=== PATIENT | male | born 1955 | race Caucasian/White ===

== ENCOUNTER → 2016-05-14 | Outpatient (REF) | payer OTHER ==
[~2016-05-14] MED LIST: ACET650T12 PO; AMLO10TA2 PO; COLA100C PO; LEVA500T PO; LISI10TA4 PO; PERC10TA17 PO; PERC5TAB6 PO
== END ==
LOC: M LAB REF 16:20
PROVIDERS: ATTEND Internal Medicine Medical Oncology
DX: C34.90 Malignant neoplasm of unspecified part of unspecified bronchus or lung (principal)

== ENCOUNTER → 2016-05-27 | Outpatient (CLI) | payer OTHER ==
--- NOTE | 2016-05-27 20:12 | REP ---
PET/CT: History: Restaging non-small cell lung carcinoma. History of metastatic disease to bone. Status post palliative radiation therapy right humerus. Comparisons: Comparison PET-CT study August 01, 2015. TECHNIQUE: 72 minutes following the intravenous injection of a 7.8 mCi dose of F-18 FDG, three-dimensional PET scintigraphy is acquired from the skull base to the proximal thighs. Triplanar noncontrast CT scanning is acquired through the same anatomic range for attenuation correction, and image registration with scan parameters optimized to minimize radiation exposure to the patient. PET scintigraphy and CT datasets were fused and displayed on a workstation with multiplanar and projection display capability. PET/CT Findings: There is mildly increased uptake in and about the known metastatic lesion in the right proximal humerus. Maximum standard uptake value in the range of 3.55. There is unfortunately evidence of progression in multiple haris groups with hypermetabolic lymphadenopathy. These include left internal jugular neck nodes with maximum standard uptake value 5.8 and 7.8, and bilateral axillary adenopathy with enlarged hypermetabolic nodes ranging in uptake to 4.8 on the left and 10.9 on the right. There is a small 1 cm but hypermetabolic right supraclavicular node with maximum standard uptake value 4.6. There is an anterior mediastinal 1 cm lymph node with very slightly increased uptake, 2.2. There is an enlarged left paratracheal node with standard uptake value 6.7. A left hilar node is normal in size, but standard uptake value 6.3. There is an upper abdominal focus of hypermetabolic uptake in the epigastric region just deep to the inferior edge of the left lobe of the liver, maximum standard uptake value is 3.0. There is a new musculoskeletal mass principally centered in the right piriformis muscle in the deep right pelvis with maximum standard uptake value 16.6. This mass is eroding the lateral margin of the sacrum just below the SI joint on the right. This mass lesion measures 4.8 cm in greatest diameter. There is right pelvic lymphadenopathy posterior to the external iliac artery with maximum standard uptake value 6.5. There is left inguinal hypermetabolic haris uptake with a small lymph node ranging up to 13.5 standard uptake value. No other new skeletal hypermetabolic foci are seen. The previously noted metastatic focus in the right pubic bone is again seen with areas of bone destruction and mildly hypermetabolic uptake, SUV value 2.8. IMPRESSION: There is evidence of principally haris progression, but also musculoskeletal progression. Multiple sites as above. Signed by Berry Rajan MD 05/28/2016 09:39 A
== END ==
LOC: M RAD 10:55
PROVIDERS: ATTEND Internal Medicine Medical Oncology
DX: C34.90 Malignant neoplasm of unspecified part of unspecified bronchus or lung (principal)

== ENCOUNTER → 2016-05-29 | Outpatient (REF) | payer OTHER ==
[2016-05-29 12:45] LABS: INR 0.92
== END ==
LOC: M LAB REF 12:07
PROVIDERS: ATTEND Internal Medicine Medical Oncology
DX: C34.90 Malignant neoplasm of unspecified part of unspecified bronchus or lung (principal)

== ENCOUNTER → 2016-06-04 | Outpatient (CLI) | payer OTHER | LOC: M ONCR 09:45 | PROVIDERS: ATTEND Radiology Radiation Oncology | DX: C34.32 Malignant neoplasm of lower lobe, left bronchus or lung (principal); C79.51 Secondary malignant neoplasm of bone ==

== ENCOUNTER → 2016-06-12 | Outpatient (CLI) | payer OTHER ==
[~2016-06-12] MED LIST changes: -COLA100C PO; +COLA100C3 PO
== END ==
LOC: M RAD 13:25
PROVIDERS: ATTEND Radiology Radiation Oncology
DX: C34.90 Malignant neoplasm of unspecified part of unspecified bronchus or lung (principal); C79.51 Secondary malignant neoplasm of bone

== ENCOUNTER 2016-06-29 15:24 | Outpatient (RCR) | payer OTHER ==
--- NOTE | 2016-06-30 07:14 | RADONC ---
RADIATION ONCOLOGY SIMULATION NOTE DATE: 06/29/2016 CHART NUMBER: [id number] Mr. Orlando was taken to the CT scan for CT simulation of his left axillary field. CT was accomplished without difficulty or discomfort. Radiation treatment planning is underway and radiation treatments will begin subsequently. An immobilization device was created and will be used throughout the course of treatment. I was physically present throughout the course of CT simulation.
--- NOTE | 2016-06-30 07:18 | RADONC ---
RADIATION ONCOLOGY DATE: 06/29/2016 PROGRESS NOTE CHART NUMBER: [id number] Mr. Orlando is presently at a dose of 1800 cGy to his right parasacral mass and is tolerating treatments quite well at this point with no significant difficulties related to his radiation therapy. REVIEW OF SYSTEMS: The patient's review of systems continues to be positive for some pain in that area as well as in the left axillary region. PHYSICAL EXAMINATION: The patient's skin is in good condition with no evidence of radiation change present. The remainder of his physical exam remains unchanged as well. ASSESSMENT: The patient is completing radiation to his parasacral mass. Since this was treated in the past, this is the maximum safe levels we can give. Hopefully, we will have been of some palliative benefit. Following this, he is being taken to the CT scan for CT simulation of his axillary area. This area will also be treated during a short course in hope to give him some palliation. Meanwhile, he is being managed by his medical oncologist and systemic treatments are being coordinated.
== END 2016-07-05 ==
LOC: M ONCR 15:24
PROVIDERS: ATTEND Radiology Radiation Oncology
DX: C79.51 Secondary malignant neoplasm of bone (principal); C34.32 Malignant neoplasm of lower lobe, left bronchus or lung

== ENCOUNTER → 2016-06-29 | Outpatient (CLI) | payer OTHER | LOC: M RAD 14:17 | PROVIDERS: ATTEND Radiology Radiation Oncology | DX: C34.90 Malignant neoplasm of unspecified part of unspecified bronchus or lung (principal) ==

== ENCOUNTER 2016-07-06 09:13 | Outpatient (RCR) | payer OTHER ==
--- NOTE | 2016-06-13 07:24 | RADONC ---
RADIATION ONCOLOGY SIMULATION NOTE DATE: 06/12/2016 CHART NUMBER: [id number]. RADIATION ONCOLOGY SIMULATION NOTE: Mr. Orlando was taken to the CT scan for CT simulation of his sacral field. CT was accomplished without difficulty or discomfort. Radiation treatment planning is underway and radiation treatments will begin subsequently. An immobilization device was created without difficulty or discomfort. It will be used throughout the course of treatment. I was physically present throughout the course of CT simulation.
--- NOTE | 2016-06-23 08:04 | RADONC ---
RADIATION ONCOLOGY PROGRESS NOTE DATE: 06/22/2016 CHART NUMBER: [id number] Mr. Orlando underwent his first fraction of radiation today to his right parasacral mass. It was tolerated without difficulty or discomfort. The patient continues to complain of pain in that area as well as several other areas. His review of systems is otherwise noncontributory. He denies nausea, vomiting, fevers, chills, night sweats, diplopia, headaches, anxiety or depression, anorexia, weight loss, visual disturbances, chest pain, urinary or bowel difficulties, bone pain, or neurological problems. PHYSICAL EXAMINATION: The patient's skin clearly showed no evidence of radiation change present. The remainder of his physical exam remains unchanged as well. Radiation will continue to his right parasacral mass. We are planning radiation to the left axilla as well.
--- NOTE | 2016-07-13 11:23 | RADONC ---
RADIATION ONCOLOGY PROGRESS NOTE DATE: 07/13/2016 CHART NUMBER: [id number] Mr. Orlando is presently a dose of 1200 cGy to his left axilla and is tolerating treatments quite well at this point with no complaints related to his radiation therapy. He is having no increased pain or discomfort. He does report an improvement in his axillary discomfort. He also reports an improvement in his hip discomfort. REVIEW OF SYSTEMS: The patient's review of systems is positive for continued hip and axillary discomfort, but is otherwise generally noncontributory. He denies nausea, vomiting, fevers, chills, night sweats, diplopia, headaches, anxiety or depression, anorexia, weight loss, visual disturbances, chest pain, urinary or bowel difficulties, bone pain or neurological problems. PHYSICAL EXAMINATION: The patient's skin in the treated area showed no evidence of moist or dry desquamation. The remainder of his physical exam remains unchanged. Mr. Orlando is tolerating his treatments quite well and radiation will continue as scheduled.
--- NOTE | 2016-07-20 10:21 | RADONC ---
RADIATION ONCOLOGY PROGRESS NOTE DATE: 07/20/2016 CHART NUMBER: [id number] Mr. Orlando is presently at a dose of 2700 cGy to his left axillary region is tolerating treatments quite well at this point with no complaints related to his radiation therapy. He is having no skin discomfort or other problems. He reports a marked improvement in his axillary pain. The patient's review of systems is noncontributory other than some hip pain. He denies nausea, vomiting, fevers, chills, night sweats, diplopia, headaches, anxiety or depression, anorexia, weight loss, visual disturbances, chest pain, urinary or bowel difficulties, bone pain, or neurological problems. PHYSICAL EXAMINATION: The patient's skin is in good condition with no evidence of moist or dry desquamation. The remainder of the physical exam remains unchanged. Mr. Orlando is tolerating treatments quite well. Radiation is scheduled for completion tomorrow. He is also scheduled for chemotherapy tomorrow.
--- NOTE | 2016-07-21 10:25 | RADONC ---
RADIATION ONCOLOGY TREATMENT SUMMARY DATE: 07/21/2016 CHART NUMBER: [id number] DIAGNOSIS: Lung cancer. STAGE: IV, metastatic. ECOG PERFORMANCE STATUS: 1. Mr. Orlando is a 60-year-old white male with the diagnosis of widely metastatic non-small cell lung carcinoma who presented to us for consideration of palliative radiation therapy to his right parasacral mass as well as is left axilla. We treated the patient to his right parasacral mass for a total dose of 1800 cGy delivered in six fractions of 300 cGy each over seven elapsed days from 06/22/2016 through 06/29/2016. The patient's mass was treated on the linear accelerator utilizing a 3-D conformal technique with a combination 18X and 6X photon beams. Following completion of the patient's right sacral treatment we treated the patient to his left axillary region for a dose of 3000 cGy delivered in 10 fractions of 300 cGy each over 13 elapsed days from 07/08/2016 through 07/21/2016. The patient's left axillary region was treated on the linear accelerator utilizing a 6X and 18X combinated photon beam via 3-D conformal therapy with AP and PA alatorre. Mr. Orlando tolerated his treatments quite well and was able to complete therapy as prescribed without interruption. I have scheduled the patient to see me again in 1 month for further followup. He will also continue to be followed by his other physicians as well. cc: MD Jimi Nguyen MD Rory Sears, [facility] *CANDACE Rosenberg
== END 2016-08-05 ==
LOC: M ONCR 09:13
PROVIDERS: ATTEND Radiology Radiation Oncology
DX: C79.51 Secondary malignant neoplasm of bone (principal); C34.32 Malignant neoplasm of lower lobe, left bronchus or lung

== ENCOUNTER → 2016-07-07 | Outpatient (REF) | payer OTHER ==
[2016-07-07 19:46] LABS: FREE T4 1.21 NG/DL (0.76-1.46)
== END ==
LOC: M LAB REF 17:02
PROVIDERS: ATTEND Internal Medicine Medical Oncology
DX: C34.90 Malignant neoplasm of unspecified part of unspecified bronchus or lung (principal)

== ENCOUNTER 2016-08-26 08:00 | Outpatient (RCR) | payer OTHER ==
[~2016-08-26 08:00] MED LIST changes: -COLA100C3 PO; +COLA100C5 PO; +LEVA1TAB2 PO; -LEVA500T PO; -PERC10TA17 PO; +PERC10TA26 PO; +PERC5TAB12 PO; -PERC5TAB6 PO
== END 2016-09-04 ==
LOC: M ONCR 08:00
PROVIDERS: ATTEND Radiology Radiation Oncology
DX: C79.51 Secondary malignant neoplasm of bone (principal); C34.32 Malignant neoplasm of lower lobe, left bronchus or lung

== ENCOUNTER → 2016-08-26 | Outpatient (CLI) | payer OTHER ==
--- NOTE | 2016-08-27 13:34 | RADONC ---
RADIATION ONCOLOGY FOLLOWUP CONSULTATION NOTE: DATE: 08/26/2016 CHART NUMBER: [id number] DIAGNOSIS: Lung cancer. STAGE: IV, metastatic. ECOG PERFORMANCE STATUS: 1 Mr. Orlando is a 60-year-old white male with the diagnosis of widely metastatic non-small cell lung carcinoma who is well known to our department and has been treated to multiple areas of the past. The patient came in today complaining of new left hip pain, which he said has been rapidly progressive over the past month or so. He says he is having difficulty walking. I reviewed the patient's PET/CT done 05/27/2016 personally and cannot see any significant disease in the region he says is causing him problems. I am ,therefore, ordering a new bone scan to be undertaken and the patient will return to me for further discussion pending the results of that bone scan. The patient's review of systems is positive for the hip pain but is otherwise noncontributory. He denies nausea, vomiting, fevers, chills, night sweats, diplopia, headaches, anxiety or depression, anorexia, weight loss, visual disturbances, chest pain, urinary or bowel difficulties, bone pain, or neurological problems. PHYSICAL EXAMINATION: The patient is a well-developed, well-nourished male in no acute distress. HEENT exam is normocephalic, atraumatic. Extraocular movements are intact. There is no palpable cervical, supraclavicular, infraclavicular, axillary, or inguinal lymphadenopathy present. Lungs are clear to auscultation and percussion. Heart has a regular rate and rhythm. Abdomen is benign with no hepatosplenomegaly, masses, or tenderness. Skeletal examination reveals no tenderness to pressure or percussion of the bony skeleton. Extremities reveal no clubbing, cyanosis, or edema. Neurologic exam is grossly intact, as is the remainder of the physical examination. ASSESSMENT: Once again, I am ordering a new bone scan and further recommendations will be made pending the results of that study. cc: MD Sisi Nguyen, MD Emile Head, DO [facility]
== END ==
LOC: M ONCR 15:14
PROVIDERS: ATTEND Radiology Radiation Oncology
DX: C34.32 Malignant neoplasm of lower lobe, left bronchus or lung (principal); C79.51 Secondary malignant neoplasm of bone

== ENCOUNTER → 2016-08-31 | Outpatient (CLI) | payer OTHER ==
[~2016-08-31] MED LIST changes: +COLA100C3 PO; -COLA100C5 PO; -LEVA1TAB2 PO; +LEVA500T PO; +PERC10TA17 PO; -PERC10TA26 PO; -PERC5TAB12 PO; +PERC5TAB6 PO
--- NOTE | 2016-08-31 13:37 | REP ---
Whole body radionuclide bone scan: Comparison studies are the whole-body bone scan 11/26/2015 and whole body PET scan of 05/27/2016. There is focal increased uptake in the proximal right humerus, similar to the prior bone scan and similar to the uptake in the comparison PET scan. There is a tiny focus of increased uptake at the inferior margin of the right sacroiliac articulation, not significantly changed from the prior bone scan and in the location where there is uptake on the PET scan. There is new focal uptake in the left iliac wing inferoanteriorly. There is increased uptake in the symphysis pubis on the right. This corresponds to uptake in the right pubic bone on the previous bone scan and on the comparison PET scan. Subtle uptake is again noted posteriorly in the right eighth through tenth ribs, similar to the prior bone scan. Impression: Multiple skeletal foci. There is at least one new focus anteriorly inferiorly in the left iliac wing. The study is performed with 21.4 mCi of technetium 99m labeled MDP. Signed by Aakash Diane MD 08/31/2016 01:27 P
== END ==
LOC: M RAD 09:27
PROVIDERS: ATTEND Radiology Radiation Oncology
DX: C34.90 Malignant neoplasm of unspecified part of unspecified bronchus or lung (principal)

== ENCOUNTER → 2016-09-17 | Outpatient (CLI) | payer OTHER ==
[~2016-09-17] MED LIST changes: -COLA100C3 PO; +COLA100C5 PO; +LEVA1TAB2 PO; -LEVA500T PO; -PERC10TA17 PO; +PERC10TA26 PO; +PERC5TAB12 PO; -PERC5TAB6 PO
--- NOTE | 2016-09-17 11:57 | RADONC ---
RADIATION ONCOLOGY CONSULTATION NOTE: DATE: 09/17/2016 CHART NUMBER: [id number] DIAGNOSIS: Lung cancer. STAGE: IV. ECOG PERFORMANCE STATUS: 1 Mr. Orlando is a very pleasant 60-year-old white male with the diagnosis of widely metastatic non-small cell lung carcinoma who is well-known to our department and has been treated to multiple bony sites in the past. The patient presents today once again reporting that he has left-sided hip pain. A bone scan was done on 08/31/2016, which shows increased uptake in the left pelvis. REVIEW OF SYSTEMS: The patient's review of systems is positive for a significant left-sided hip pain but is otherwise largely noncontributory. He denies nausea, vomiting, fevers, chills, night sweats, diplopia, headaches, anxiety or depression, anorexia, weight loss, visual disturbances, chest pain, urinary or bowel difficulties, bone pain, or neurological problems. PHYSICAL EXAMINATION: The patient is a well-developed, well-nourished male in no acute distress. HEENT exam is normocephalic, atraumatic. Extraocular movements are intact. There is no palpable cervical, supraclavicular, infraclavicular, axillary, or inguinal lymphadenopathy present. Lungs are clear to auscultation and percussion. Heart has a regular rate and rhythm. Abdomen is benign with no hepatosplenomegaly, masses, or tenderness. Skeletal examination reveals no tenderness to pressure or percussion of the bony skeleton. Extremities reveal no clubbing, cyanosis, or edema. Neurologic exam is grossly intact, as is the remainder of the physical examination. ASSESSMENT: Mr. Orlando is presenting with new left-sided hip pain. The previous sites of treatment showed a good result with almost full resolution of his discomfort. I do believe the patient would be a candidate for palliative radiation therapy and I have so informed him. I have discussed with the patient in detail the potential benefits as well as possible acute and chronic sequelae of external beam radiation therapy. We discussed logistics of treatment planning, simulation and subsequent fractionated daily radiation treatments. I have scheduled the patient for the next available simulation slot and radiation treatments will begin subsequently. Thank you for allowing us to participate in the care of this very pleasant gentleman. If I could be of any further assistance or provide you any information, please free to contact me anytime. As always warm regards, nausea. cc: Osagie Kaur, MD Sisi Creedon, MD Emile Head, DO [facility]
--- NOTE | 2016-09-22 10:43 | RADONC ---
RADIATION ONCOLOGY SIMULATION NOTE DATE: 09/22/2016 CHART NUMBER: [id number] Mr. Orlando was taken to the CT scan for CT simulation of his left pelvic and hip field. CT was accomplished without difficulty or discomfort. Radiation treatment planning is underway and radiation treatments will begin subsequently. An immobilization device was created and will be used throughout the course of treatment. It was created without difficulty or discomfort. I was physically present throughout the course of CT simulation.
--- NOTE | 2016-10-06 06:53 | RADONC ---
RADIATION ONCOLOGY PROGRESS NOTE DATE: 10/05/2016 CHART NUMBER: [id number] Mr. Orlando is presently at a dose of 1200 centigrade to his left hip and is tolerating treatments quite well at this point with no complaints related to his radiation therapy. He is having no nausea or vomiting. The patient does have increased hip pain as he has used up his pain medication and is unable to fill this prescription until October 10. REVIEW OF SYSTEMS: The patient's review of systems is positive for increased hip pain, but is otherwise noncontributory. Denies nausea, vomiting, fevers, chills, night sweats, diplopia, headaches, anxiety or depression, anorexia, weight loss, visual disturbances, chest pain, urinary or bowel difficulties, bone pain, or neurological problems. PHYSICAL EXAMINATION: The patient's skin is in good condition with no evidence of radiation change present. There is no moist or dry desquamation. The remainder of his physical exam remains unchanged. Mr. Orlando is tolerating treatments quite well and radiation will continue as scheduled.
== END ==
LOC: M ONCR 09:51
PROVIDERS: ATTEND Radiology Radiation Oncology
DX: C34.90 Malignant neoplasm of unspecified part of unspecified bronchus or lung (principal); C79.51 Secondary malignant neoplasm of bone

== ENCOUNTER 2016-09-22 11:55 | Outpatient (RCR) | payer OTHER | END 2016-10-05 | LOC: M ONCR 11:55 | PROVIDERS: ATTEND Radiology Radiation Oncology | DX: C79.51 Secondary malignant neoplasm of bone (principal); C34.32 Malignant neoplasm of lower lobe, left bronchus or lung ==

== ENCOUNTER → 2016-09-22 | Outpatient (CLI) | payer OTHER | LOC: M RAD 10:01 → M ONCR 10:01 | PROVIDERS: ATTEND Radiology Radiation Oncology | DX: C34.32 Malignant neoplasm of lower lobe, left bronchus or lung (principal); C79.51 Secondary malignant neoplasm of bone ==

== ENCOUNTER 2016-10-06 09:00 | Outpatient (RCR) | payer OTHER ==
--- NOTE | 2016-10-12 13:30 | RADONC ---
RADIATION ONCOLOGY PROGRESS NOTE DATE: 10/12/2016 CHART NUMBER: [id number] Mr. Orlando is presently at a dose of 2700 cGy to his left hip and is tolerating treatments quite well at this point with no complaints related to his radiation therapy. He is having no increased hip pain or other problems. REVIEW OF SYSTEMS: The patient's review of systems is noncontributory. He denies nausea, vomiting, fevers, chills, night sweats, diplopia, headaches, anxiety or depression, anorexia, weight loss, visual disturbances, chest pain, urinary or bowel difficulties, bone pain or neurological problems. PHYSICAL EXAMINATION: The patient's skin is in good condition with no evidence of moist or dry desquamation. The remainder of his physical exam remains unchanged. Mr. Orlando is tolerating treatments quite well and radiation will continue as scheduled.
--- NOTE | 2016-10-13 15:16 | RADONC ---
RADIATION ONCOLOGY TREATMENT SUMMARY DATE: 10/13/2016 CHART NUMBER: [id number] DIAGNOSIS: Lung cancer. STAGE: IV ECOG PERFORMANCE STATUS: 1 Mr. Orlando is a 61-year-old white male with the diagnosis of widely metastatic non-small cell lung carcinoma, who presents to us for consideration of palliative radiation therapy to his left hip. We treated the patient to the left hip for a total dose of 3000 cGy delivered in 10 fractions of 300 cGy each over 13 elapsed days from 09/30/2016 through 10/13/2016. The patient's left hip was treated on a linear accelerator utilizing an 18 MV photon beam via anterior and posterior parallel-opposed alatorre. Mr. Orlando tolerated his treatments quite well, was able to complete therapy as prescribed without interruption. The patient is scheduled see me again in 1 month for further followup. He will also continue to be followed by his other physicians as well. Thank you for allowing us to participate in the care of this very pleasant gentleman. If I could be of any further assistance or provide you with any information, please feel free to contact me at anytime. cc: MD Sisi Nguyen, MD Emile Head, DO [facility]
== END 2016-11-05 ==
LOC: M ONCR 09:00
PROVIDERS: ATTEND Radiology Radiation Oncology
DX: C79.51 Secondary malignant neoplasm of bone (principal); C34.32 Malignant neoplasm of lower lobe, left bronchus or lung

== ENCOUNTER → 2016-10-28 | Outpatient (REF) | payer OTHER ==
[2016-10-28 19:10] LABS: FREE T4 1.35 NG/DL (0.76-1.46)
== END ==
LOC: M LAB REF 12:56
PROVIDERS: ATTEND Internal Medicine Medical Oncology
DX: C34.90 Malignant neoplasm of unspecified part of unspecified bronchus or lung (principal)

== ENCOUNTER → 2016-11-11 | Outpatient (CLI) | payer OTHER ==
--- NOTE | 2016-11-12 10:37 | RADONC ---
RADIATION ONCOLOGY PROGRESS NOTE: DATE: 11/11/2016 CHART NUMBER: [id number]. DIAGNOSIS: Lung cancer. STAGE: IV. ECOG PERFORMANCE STATUS: 1. FOLLOWUP NOTE: Mr. Orlando is a 61year-old gentleman with the diagnosis of metastatic nonsmall lung carcinoma who is presenting to us to day for followup visit 1 month post completion of palliative radiation to his left hip. The patient presents today reporting that he is feeling better and has less pain in his left hip. He also reports that he is being followed and managed closely by his medical oncologist, Dr. Kaur. He has no new complaints related to his radiation therapy or disease. REVIEW OF SYSTEMS: The patient's review of systems is positive for continued discomfort in his left hip, which is improving. It is otherwise noncontributory. The patient's review of systems is negative for nausea, vomiting, fevers, chills, night sweats, diplopia, headaches, anxiety or depression, anorexia, weight loss, visual disturbances, chest pain, urinary or bowel difficulties, or neurological problems. PHYSICAL EXAMINATION: The patient is an ill kempt, white male in no acute distress. HEENT exam is normocephalic, atraumatic. Extraocular movements are intact. There is no palpable cervical, supraclavicular, infraclavicular, axillary or inguinal lymphadenopathy present. His lungs are clear to auscultation and percussion. His heart has a regular rate and rhythm. His abdomen is benign with no hepatosplenomegaly, masses or tenderness. Skeletal examination reveals no tenderness to pressure or percussion of the bony skeleton. Extremities reveal no clubbing, cyanosis or edema. Neurological exam is intact, as is the remainder of physical examination. ASSESSMENT: The patient is clinically doing better status post palliative radiation therapy to his left hip. He continues to have some discomfort in that area. He is presently being managed and followed closely medical oncology and is therefore being discharged from our followup except on an as needed basis. cc: MD Sisi Nguyen NP Robert Johnson, MD Rory Sears, DO [facility]
== END ==
LOC: M ONCR 14:14
PROVIDERS: ATTEND Radiology Radiation Oncology
DX: C34.32 Malignant neoplasm of lower lobe, left bronchus or lung (principal); C79.51 Secondary malignant neoplasm of bone

== ENCOUNTER → 2016-12-22 | Outpatient (CLI) | payer OTHER ==
--- NOTE | 2016-12-23 08:15 | RADONC ---
RADIATION ONCOLOGY FOLLOWUP CONSULTATION NOTE DATE: 12/22/2016 CHART NUMBER: [id number]. DIAGNOSIS: Lung cancer. STAGE: IV. ECOG PERFORMANCE STATUS: 1. FOLLOWUP CONSULTATION NOTE: Mr. Orlando is a 61-year-old white male with the diagnosis of widely metastatic known non-small cell lung carcinoma who presents to us today complaining once again of right-sided hip pain. He reports the pain is located over his buttocks on the right, basically in the same area he has had it before. He has no other complaints at this time. REVIEW OF SYSTEMS: The patient's review of systems is positive for his hip pain but is otherwise, generally noncontributory. Denies nausea, vomiting, fevers, chills, night sweats, diplopia, headaches, anxiety or depression, anorexia, weight loss, visual disturbances, chest pain, urinary or bowel difficulties, bone pain, or neurological problems. PHYSICAL EXAMINATION: The patient is a white male in no acute distress with very poor hygiene. His lungs are clear to auscultation and percussion. His heart has a regular rate and rhythm. Skeletal examination does not reveal any tenderness to pressure percussion of the bony skeleton. ASSESSMENT: I had a very lengthy discussion with this patient. Unfortunately, this area has been treated twice in the past. No further radiation can be safely delivered. I made clear to the patient that we would be more than happy to treat any other area that has not been already treated, but not only would treatment not be a benefit to him to this area, but it would most likely cause him significant harm. I wish we could have been of more benefit to this unfortunate gentleman. I have discussed with him the possibility of hospice at this point. We would be more than willing to set him up with a hospice referral if he should so desire. At the present time, however the patient does not wish to consider hospice. He will continue to be followed and managed by his medical oncologist, Dr. Kaur. cc: MD Sisi Nguyen NP Robert Johnson, MD Rory Sears, DO [facility]
== END ==
LOC: M ONCR 15:02
PROVIDERS: ATTEND Radiology Radiation Oncology
DX: C34.32 Malignant neoplasm of lower lobe, left bronchus or lung (principal); C79.51 Secondary malignant neoplasm of bone

== ENCOUNTER → 2016-12-23 | Outpatient (REF) | payer OTHER ==
[2016-12-23 19:19] LABS: FREE T4 1.32 NG/DL (0.76-1.46)
== END ==
LOC: M LAB REF 17:21
PROVIDERS: ATTEND Internal Medicine Medical Oncology
DX: C34.90 Malignant neoplasm of unspecified part of unspecified bronchus or lung (principal)

== ENCOUNTER → 2017-01-19 | Outpatient (CLI) | payer OTHER ==
--- NOTE | 2017-02-02 01:32 | ECWPNPC ---
PATIENT NAME: TREVOR GUAN : 1955 GENDER: MALE VISIT DATE: 01/19/2017 DISCHARGE DATE: 01/19/17 1104 VISIT LOCKED DATE TIME: PHYSICIAN: YESY HERRERA RESOURCE: YESY HERRERA REASON FOR APPOINTMENT 1. 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 PATIENT DESCRIBES THE PAIN ACHING WITH A PAIN SCORE OF 7/10. PATIENT STATES THAT PAIN STARTED A FEW MONTHS AGO FROM THE MULTIPLE TUMORS IN HIS BODY. CURRENTLY THE PATIENT IS USING OXYCODONE AND IBUPROFEN FOR THIS PAIN BUT THE PAIN IS PERSISTENT. 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 PATIENT IS FOLLOWING DR. ALLISON FOR A CHEMOTHERAPIST AND DR. BERNABE FOR RADIATION THERAPY. PATIENT HAS NOT TRIED PHYSICAL THERAPY FOR THIS PAIN AT THIS TIME. PATIENT DENIES UNEXPLAINABLE WEIGHT LOSS, FEVER, CHILLS, NEW CHANGES ON HIS URINARY OR BOWEL CONTROL. PAIN SCREENING: PATIENT HAS A COMPLAINT OF ACUTE OR CHRONIC PAIN :YES CURRENT MEDICATIONS TAKING OXYCODONE-ACETAMINOPHEN 5-325 MG TABLET 1 TABLET NEEDED ORALLY EVERY 6 HRS TAKING AMLODIPINE BESYLATE 10 MG TABLET 1 TABLET ORALLY ONCE A DAY TAKING LISINOPRIL 10 10 MG TABLET ORAL TAKING IBUPROFEN 800 MG TABLET 1 TABLET ORALLY 2 TIMES A DAY NOT-TAKING OXYCODONE HCL 5 MG/5ML SOLUTION 5 ML NEEDED ORALLY EVERY 6 HRS UNKNOWN PERCOCET 5-325 MG TABLET 1-2 TABLET(S) ORALLY EVERY 4 HRS NEEDED FOR PAIN (MAX DAILY DOSE 12 TABS) UNKNOWN COLACE 100 MG CAPSULE 1 CAPSULE ORALLY BID MEDICATION LIST REVIEWED AND RECONCILED WITH THE PATIENT PAST MEDICAL HISTORY HYPERTENSION KIDNEY CANCER ALLERGIES PENICILLIN (FOR ALLERGIES USE ONLY): HIVES SURGICAL HISTORY RIGHT KNEE 1980 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 CAFFEINE 1-2/DAY. SEXUAL HX HAD SEX IN THE LAST 12 MONTHS (VAGINAL, ORAL, OR ANAL)?: NO, HAVE YOU EVER HAD AN STD?: NO. DIET: REGULAR. EXERCISE: DAILY. MARITAL STATUS: .. PETS: 2 CATS. TAOISM NO EPISCOPALIAN BELIEFS THAT WOULD IMPACT HEALTH CARE. LANGUAGE MOZAMBICAN. EDUCATION LEVEL OF EDUCATION:FINISHED HIGH SCHOOL LEARNING BARRIERS / SPECIAL NEEDS HEARING IMPAIRED?NO VISION IMPAIRED?YES :CORRECTIVE LENSES COGNITIVELY IMPAIRED?NO READINESS TO LEARN?YES LEARNING PREFERENCES?YES :BOOKLETS, HANDOUTS PAIN CLINIC PFS, CLERGY, PUBLIC HEALTH REFERRALS HAS THE PATIENT BEEN EDUCATED REGARDING HIS/HER PLAN OF CARE?YES HAS THE PATIENT BEEN EDUCATED REGARDING PAIN, THE RISK FOR PAIN, THE IMPORTANCE OF EFFECTIVE PAIN MANAGEMENT, AND THE PAIN ASSESSMENT PROCESS?YES ADVANCE DIRECTIVES HEALTH CARE PROXY?NO DO YOU HAVE A DNR?NO POWER OF INDEPENDENT LIVING ADVISOR?YES NAME OF POA? MARIA M GUAN, SON PHONE # OF POA? [phone] TRAVEL OUTSIDE US: DENIES. DOMESTIC VIOLENCE NONE. HOSPITALIZATION/MAJOR DIAGNOSTIC PROCEDURE SPIDER BIT REVIEW OF SYSTEMS REVIEWED BY: PROVIDER: YESY HERRERA MD . CONSTITUTIONAL: ANY CHANGE IN YOUR MEDICAL CONDITION? NO . CHILLS NO . FEVER NO . INFECTION: DO YOU HAVE NEW INFECTIONS? NO . DO YOU HAVE HISTORY OF MRSA? NO . MUSCULOSKELETAL: ANY NEW PATTERNS OF PAIN OR NUMBNESS? NO . SYTEMIC LUPUS NO . GASTROENTEROLOGY: ANY NEW CHANGE IN BOWEL CONTROL? NO . BARRETTS ESOPHAGUS NO . CIRRHOSIS NO . HEPATITIS NO . LIVER FAILURE NO . ACID REFLUX NO . UNEXPLAINED WEIGHT LOSS NO . GENITOURINARY: ANY NEW CHANGE IN BLADDER CONTROL? NO . IS THERE A CHANCE YOU COULD BE ? NO . HEMATOLOGY/LYMPH: DO YOU TAKE ANY BLOOD THINNERS? (FOR EXAMPLE- COUMADIN, PLAVIX, AGGRENOX, PLATEL, PRADAXA, OR XARELTO) NO . WHEN WAS YOUR LAST DOSE? DATE: TIME: . LOW PLATELET COUNT NO . SICKLE CELL DISEASE NO . VON WILLIEBRANDS NO . FACTOR V LEIDEN NO . THALLASEMIA NO . ANEMIA NO . EASY BRUISING NO . NEUROLOGY: HAVE YOU FALLEN IN THE PAST 6 MONTHS? YES, PT STATES HE FALLS FREQUENTLY FROM WEAKNESS AND LOSS OF BALANCE. PT STATES HE DENIES SEEKING MEDICAL TX FOR INJURIES. PT SUSPECTS HE FX RIGHT SIDED RIBS, PT DECLINES TO SEE PCP ABOUT THIS HE FEELS NOTHING CAN BE DONE OVER A FX RIB . ANY NEW EXTREMITY NUMBNESS OR WEAKNESS? NO . HEAD INJURY NO . DEMENTIA NO . CEREBRAL PALSY NO . MULTIPLE SCLEROSIS NO . DIZZINESS NO . HEADACHE NO . STROKES NO . VERTIGO NO . CARDIOLOGY: DO YOU HAVE A PACEMAKER OR DEFIBRILLATOR? NO . ANGINA NO . HEART ATTACK NO . HEART SURGERY NO . CONGESTIVE HEART FAILURE/FLUID OVERLOAD NO . CHEST PAIN NO . HIGH BLOOD PRESSURE NO . IRREGULAR HEART BEAT NO . RESPIRATORY: HAVE YOU BEEN SICK IN THE PAST WEEK? NO . FEVER NO . FLU LIKE SYMPTOMS? NO . CPAP NO . BYPAP NO . ASTHMA NO . EMPHYSEMA NO . CHRONIC LUNG DISEASES NO . SHORTNESS OF BREATH ON EXERTION NO . COUGH NO . SNORING NO . INTEGUMENTARY: DO YOU HAVE ANY RASHES OR OPEN SORES? NO . ALLERGIC/IMMUNO: ARE YOU ALLERGIC TO SHELLFISH OR IV DYE? NO . ANY NEW ALLERGIES? NO . PSYCHIATRIC: DO YOU HAVE THOUGHTS OF HURTING YOURSELF OR SOMEONE ELSE? NO . ARE YOU ABUSED, NEGLECTED, OR IN AN UNSAFE ENVIRONMENT? NO . ENDOCRINOLOGY: ARE YOU DIABETIC? NO . THYROID DISORDER NO . OTHER: DO YOU NEED ANY PRESCRIPTIONS? NO . IF YES, PLEASE LIST: ____ . ANY NEW PROBLEMS WITH YOUR MEDICATIONS? NO . WHEN DID YOU LAST EAT? ____ . WHEN DID YOU LAST DRINK? ____ . WHAT DID YOU LAST DRINK? ____ . NAME OF PERSON DRIVING YOU HOME? ____ . DO YOU HAVE ANY OTHER QUESTIONS OR CONCERNS NO . VITAL SIGNS WT 147.8 LBS, HT 71", BMI 20.61 INDEX, BP 158/82 MM HG, HR 93 /MIN, RR 16 /MIN, TEMP 97.4 F, OXYGEN SAT % 98%, NA INITIALS TL 1435, REVIEWED BY: EM. EXAMINATION : PATIENT IS ALERT O X 3 AND COOPERATIVE. TENDERNESS IN THE RIGHT BUTTOCK AREA. TENDERNESS IN THE ACETABULUM AREA. PATIENT HAS DIFFICULTIES GETTING TO THE SUPINE POSITION. LUNGS CLEAR, TO AUSCULTATION. NO MURMURS OR GALLOPS; FACIAL CRANIAL NERVES ARE GROSSLY NORMAL. GOOD SYMMETRY OF FACIAL MUSCLE MOVEMENT. NORMAL VISUAL LING. ABDOMINAL SOFT AND DEPRESSIBLE. ASSESSMENTS SACROILIITIS, NOT ELSEWHERE CLASSIFIED - M46.1 (PRIMARY) ACETABULUM BURSA PAIN. TREATMENT SACROILIITIS, NOT ELSEWHERE CLASSIFIED NOTES: WE DISCUSSED SEVERAL ISSUES WITH MR. COLLAZO'S PAIN MANAGEMENT CASE. AT THIS TIME THE PATIENT WILL CONTINUE WITH THE SAME MEDICATION REGIME. AT THIS TIME I WOULD LIEK TO DO A STUDY UNDER FLUORSCOPY TO RULE OUT PAIN FROM THE RIGHT ACETUBULUM BURSA VERSUS THE RIGHT SACROILIAC JOINT AREA. PROCEDURE CODES FA211 ESTABILISHED PATIENT [facility] CHARGE G8427 DOC MEDS VERIFIED W/PT OR RE G8730 PAIN ASSESS POS TOOL F/U PLAN DOC DISPOSITION & COMMUNICATION FOLLOW UP 3 WEEKS ELECTRONICALLY SIGNED BY YESY HERRERA MD ON 02/01/2017 AT 01:57 PM EST DISCLAIMER : THIS IS A VISIT SUMMARY EXTRACTED FROM THE [employer] CHART. IT IS NOT A COPY OF THE [employer] PROGRESS NOTE. PAO
== END | disposition home or self-care (01) ==
LOC: M PAIN 14:30
PROVIDERS: ATTEND Anesthesiology
DX: G89.29 Other chronic pain (principal); M46.1 Sacroiliitis, not elsewhere classified; I10 Essential (primary) hypertension; Z85.528 Personal history of other malignant neoplasm of kidney; Z79.899 Other long term (current) drug therapy; Z88.0 Allergy status to penicillin; F17.210 Nicotine dependence, cigarettes, uncomplicated

== ENCOUNTER → 2017-02-17 | Outpatient (REF) | payer OTHER ==
[2017-02-17 17:37] LABS: FREE T4 1.29 NG/DL (0.76-1.46)
== END ==
LOC: M LAB REF 16:31
PROVIDERS: ATTEND Internal Medicine Medical Oncology
DX: C34.90 Malignant neoplasm of unspecified part of unspecified bronchus or lung (principal)

== ENCOUNTER → 2017-03-03 | Outpatient (REF) | payer OTHER ==
[2017-03-03 19:12] LABS: FREE T4 1.65 NG/DL (0.76-1.46)
== END ==
LOC: M LAB REF 16:58
DX: C34.90 Malignant neoplasm of unspecified part of unspecified bronchus or lung (principal)
CPT/HCPCS: 84443